=== PATIENT | female | born 1985 | race Caucasian/White ===

== ENCOUNTER → 2020-05-08 16:00 | Outpatient (CLI) | payer OTHER, SELFPAY ==
[2020-05-08 18:15] LABS: Internal QC Validated? YES +Cl - CLEAR BKGD; Pregnancy, Serum, hCG Quali. NEGATIVE Negative
[2020-05-08 18:37] LABS: AST(SGOT) 26 U/L (15-37); Alanine Aminotransfer ALT/SGPT 42 U/L (13-56); Cholesterol 231 mg/dL (200); High Density Lipoprotein 46 mg/dL; Triglycerides 120 mg/dL; Very Low Density Lipoprotein 24 mg/dL (5-40)
== END ==
PROVIDERS: Referring Provider Dermatology; Visit Provider Dermatology
DX: L70.0 Acne vulgaris (principal); L71.8 Other rosacea; Z79.899 Other long term (current) drug therapy
CPT/HCPCS: 36415; 80061; 84450; 84460; 84703

== ENCOUNTER → 2020-06-10 16:34 | Outpatient (CLI) | payer OTHER, SELFPAY ==
[2020-06-10 17:47] LABS: Internal QC Validated? YES +Cl - CLEAR BKGD; Pregnancy, Urine Negative Negative
== END ==
PROVIDERS: Referring Provider Dermatology; Visit Provider Dermatology
DX: Z79.899 Other long term (current) drug therapy (principal)
CPT/HCPCS: 81025

== ENCOUNTER → 2020-07-11 16:01 | Outpatient (CLI) | payer OTHER, SELFPAY ==
[2020-07-11 17:39] LABS: Internal QC Validated? YES +Cl - CLEAR BKGD; Pregnancy, Urine Negative Negative
== END ==
PROVIDERS: Referring Provider Dermatology; Visit Provider Dermatology
DX: Z79.899 Other long term (current) drug therapy (principal)
CPT/HCPCS: 81025

== ENCOUNTER → 2020-08-13 07:17 | Outpatient (CLI) | payer OTHER, SELFPAY ==
[2020-08-13 10:44] LABS: AST(SGOT) 22 U/L (15-37); Alanine Aminotransfer ALT/SGPT 30 U/L (13-56); Albumin, Serum 3.4 g/dL (3.2-5.0); Alkaline Phosphatase 63 U/L (45-117); Bilirubin, Direct < 0.05 mg/dL (0.00-0.30); Protein, Total 7.4 g/dL (6.4-8.2)
[2020-08-13 11:36] LABS: hCG Titer Quant., Serum < 1 mIU/mL (1-3)
== END ==
PROVIDERS: Referring Provider Dermatology; Visit Provider Dermatology
DX: Z79.899 Other long term (current) drug therapy (principal)
CPT/HCPCS: 36415; 80076; 84702

== ENCOUNTER → 2020-09-16 09:18 | Outpatient (CLI) | payer OTHER, SELFPAY ==
[2020-09-16 10:44] LABS: Internal QC Validated? YES +Cl - CLEAR BKGD; Pregnancy, Urine Negative Negative
== END ==
PROVIDERS: Referring Provider Dermatology; Visit Provider Dermatology
DX: Z79.899 Other long term (current) drug therapy (principal)
CPT/HCPCS: 81025

== ENCOUNTER → 2020-10-23 16:25 | Outpatient (CLI) | payer OTHER, SELFPAY ==
[2020-10-23 17:53] LABS: Internal QC Validated? YES +Cl - CLEAR BKGD; Pregnancy, Urine Negative Negative
== END ==
PROVIDERS: Referring Provider Dermatology; Visit Provider Dermatology
DX: Z79.899 Other long term (current) drug therapy (principal)
CPT/HCPCS: 81025

== ENCOUNTER → 2020-11-21 08:53 | Outpatient (CLI) | payer OTHER, SELFPAY ==
[2020-11-21 10:21] LABS: Internal QC Validated? YES +Cl - CLEAR BKGD; Pregnancy, Urine Negative Negative
== END ==
PROVIDERS: Referring Provider Dermatology; Visit Provider Dermatology
DX: Z79.899 Other long term (current) drug therapy (principal)
CPT/HCPCS: 81025

== ENCOUNTER → 2021-01-02 16:44 | Outpatient (CLI) | payer OTHER, SELFPAY ==
[2021-01-02 20:06] LABS: Internal QC Validated? YES +Cl - CLEAR BKGD; Pregnancy, Urine Negative Negative
== END ==
PROVIDERS: Referring Provider Dermatology; Visit Provider Dermatology
DX: Z79.899 Other long term (current) drug therapy (principal)
CPT/HCPCS: 36415; 81025

== ENCOUNTER → 2021-02-06 09:16 | Outpatient (CLI) | payer OTHER, SELFPAY ==
[2021-02-06 10:47] LABS: Internal QC Validated? YES +Cl - CLEAR BKGD; Pregnancy, Urine Negative Negative
== END ==
PROVIDERS: Referring Provider Dermatology; Visit Provider Dermatology
DX: Z79.899 Other long term (current) drug therapy (principal)
CPT/HCPCS: 81025

== ENCOUNTER → 2021-03-13 16:41 | Outpatient (CLI) | payer OTHER, SELFPAY ==
[2021-03-13 19:23] LABS: Internal QC Validated? YES +Cl - CLEAR BKGD; Pregnancy, Urine Negative Negative
== END ==
PROVIDERS: Referring Provider Dermatology; Visit Provider Dermatology
DX: Z79.899 Other long term (current) drug therapy (principal)
CPT/HCPCS: 81025

== ENCOUNTER 2021-04-30 16:26 | Outpatient (CLI) | payer OTHER, SELFPAY ==
[2021-04-30 17:51] LABS: Internal QC Validated? YES +Cl - CLEAR BKGD; Pregnancy, Urine Negative Negative
== END 2021-04-30 23:59 | disposition short-term general hospital (02) ==
LOC: MTLAB 16:27
PROVIDERS: Referring Provider Dermatology; Visit Provider Dermatology
DX: L70.0 Acne vulgaris (principal); L71.8 Other rosacea; L70.5 Acne excoriee; L90.5 Scar conditions and fibrosis of skin; L85.3 Xerosis cutis; K13.0 Diseases of lips; L23.3 Allergic contact dermatitis due to drugs in contact with skin; Z79.899 Other long term (current) drug therapy
CPT/HCPCS: 81025

== ENCOUNTER 2022-01-15 06:02 | Day surgery (SDC) | payer OTHER, SELFPAY ==
[2022-01-09 07:49] LABS: Hematocrit 43.3 % (37-47); Hemoglobin 14.2 g/dL (12.0-15.0); Mean Corp Hgb Conc 32.8 g/dL (32-36); Mean Corpuscular Hgb 29.6 pg (27.0-32.0); Mean Corpuscular Volume 90.2 fL (81-99); Mean Platelet Vol. 9.6 fl (6.2-12.0); Platelet Count 274 K/mm3 (150-450); RBC Distribution Width CV 12.8 % (11.6-14.6); RBC Distribution Width SD 42.3 fl (35.1-43.9)
[2022-01-15 06:20] VITALS: BP 120/95; PULSE 99; RESP 18; TEMP 36.9; O2SAT 98; BMI 38.1
[2022-01-15 06:28] LABS: Internal QC Validated? YES +Cl - CLEAR BKGD; Pregnancy, Urine Negative Negative
[2022-01-15] MEDS: Acetaminophen 500 MG Tablet 1000 MG PO (06:51)
[2022-01-15] MEDS: Lactated Ringers 1,000 ML 15 ML IV (06:51)
[2022-01-15] MEDS: Celecoxib 200 MG Capsule 400 MG PO (06:52)
--- NOTE | 2022-01-15 07:30 | FALS_PTH ---
PATIENT: FLORES SPARKS LOC: [facility] – [place] U#:[id number] AGE/SX: 36/F ROOM: RE01/15/[address]: Dr. Lisa Casey MD : 1985 BED: DIS: 01/15/2022 SPEC #: [id number] RECD: 01/15/22 10:40 STATUS: JENNIFER RECatherine #: [id number] STORMY: 01/15/22 07:[address]: Lisa Casey DEPT: SURGICAL PATHOLOGY RECD BY: Amelia Emerson ENTERED: 01/15/22 11:12 SP TYPE: FALL TUBES OTHR DR: Sriram Vigil Tissues: Fallopian tube Procedures: Surgery Specimen Level II HEADER OPERATION: Laparoscopic salpingectomy PRE-OP DIAGNOSIS: Sterilization request TISSUE SUBMITTED: Bilateral fallopian tubes MICROSCOPIC DIAGNOSIS Right and left fallopian tubes, bilateral salpingectomies: Two complete segments of fallopian tubes with no pathologic change. AM:joe 01/16/2022 MICROSCOPIC DESCRIPTION Slides are reviewed. GROSS DESCRIPTION Received in fixative is one container labeled with the patient's name and designated bilateral fallopian tubes. The specimen consists of bilateral fallopian tubes including fimbrial ends measuring 6.5 cm in length and 0.6 cm in diameter and 6 cm in length and 0.4 cm in diameter. The fallopian tubes are not identified as right or left. Sections reveal unremarkable cut surfaces. Traveling Buyer sections are submitted in two cassettes with each cassette containing one fallopian tube. / PAULINO:joe 01/15/2022 TC:4 CPT: 54953 x2
--- NOTE | 2022-01-15 07:46 | PCM.HP.BLA ---
History and Physical Date of Admission: 01/15/22 STERILIZATION REQUEST. H&P reviewed, no clinically relevant updates since entered.
--- NOTE | 2022-01-15 07:51 | DCINST_ITS ---
Discharge Instructions Diet Discharge Diet: No restrictions Activity Return to work on:: 01/19/22August shower in (days): 1 May resume sexual activity in: 2 weeks Lifting Restrictions: 15 lbs for 3 days Dressing / Incision Call your doctor if your incision/area has: Continuous Slow Oozing, Sudden Increased Bleeding and Increased Pain/ Swelling Call your doctor if you observe: Fever of 101 or Higher and Inability to urinate Cleanse incision/area with: Soap & Water Additional Dressing/Incision Instructions:: YOur incisions have skin glue. Leave them it on for 10 days or until it falls off. Alternate tylenol or acetaminophen 700-1000 mg orally every 6-8 hrs as needed for pain Follow Up Care Please Follow Up With: Lisa Casey MD When: as needed Test Results: Test results from this visit will be discussed in further detail at your follow- up appointment, if applicable. Discharge Plan Admission Primary Reason for Your Visit: Tubal sterilization Attending Provider: Lisa Casey Primary Care Provider: Sriram Vigil Discharge Orders/Prescriptions Prescriptions: New ibuprofen [ibuprofen] 600 MG tablet 600 mg PO Q6H PRN PRN (Reason: fever or pain) 20 Days Qty: 60 1RF No Action calcium 600 mg Capsule 600 mg PO DAILY Mirena 20 mcg/24 hours (7 yrs) 52 mg Intrauterine Device 52 mcg INTRAUTERINE . ascorbic acid (vitamin C) [Vitamin C] 500 mg Tablet 1,000 mg PO DAILY valerian root 1,000 mg Capsule 1,000 mg PO QHS methylphenidate HCl 27 mg Tablet Extended Release 24hr 27 mg PO DAILY Women's One Daily 27-0.4 mg Tablet 1 tab PO DAILY Referrals / Follow Up: Sriram Vigil [Primary Care Provider] - Disposition Disposition (needs filled in before D/C Order can be placed): Home, Self Care
--- NOTE | 2022-01-15 08:11 | PCM.OPRPT ---
Problems Associated Problem List Diagnoses (1) Sterilization: Report of Operation Date of Procedure: 01/15/22 Pre-Operative Diagnosis: sterilization request Post-Operative Diagnosis: same Surgery/Procedure Performed:: Laparoscopic bilateral salpingectomy Description of Surgical Findings:: Normal cervix, vagina, uterus tubes and ovaries. Surgeon: Lisa Casey supervisor agricultural education: None Type of Anesthesia: General Anesthesiologist: Phil Duggan Special Medications: none Specimen's removed: Bilateral fallopian tube Drains: None Estimated Blood Loss (mL): 10 Fluids Replaced: 600 Description of Procedure: The patient was taken to the operating room where she was prepped and draped in the dorsolithotomy position. A weighted speculum was placed in the vagina and the anterior lip of the cervix was grasped with a tenaculum. No other uterine manipulator was made because the patient has an IUD and the Mirena strings were visualized. The remaining instruments removed from the vagina and attention was turned to the abdomen. All port sites were infiltrated with 0.25% Marcaine before skin incisions were made. A 5 mm intraumbilical incision was made. The anterior abdominal wall was tented up with 2 towel clamps while a 5 mm blade less trocar and sleeve were directly inserted. Intraperitoneal placement was confirmed with the laparoscope. The pneumoperitoneum was created and the underlying abdominal contents were intact. The patient was placed in Trendelenburg. Right and left lower quadrant ports were placed under direct visualization lateral to the inferior epigastric vessels. The bowel was swept away and the above findings were noted. The Enseal device was used to clamp seal and transect the antimesenteric portions of the right tube to the cornual insertion of the uterus. The tube was amputated from the uterus and the pedicles were all confirmed to be hemostatic. The same procedure was performed on the contralateral side. The specimens were brought out through a 5 mm port. The pedicles were again examined and found to be hemostatic. The lateral ports were removed under direct visualization and no active bleeding was noted. The pneumoperitoneum was released. The skin incisions were closed with Monocryl suture in a subcuticular fashion and skin glue. The vaginal instruments were removed and the vaginal sweep was completed by me. The procedure was performed by me with assistance. All sponge and needle counts were correct and the patient was taken to the recovery room in stable condition. Grafts/Implants Used: none Procedure Start Time: 11:59 Procedure Stop Time: 08:09 Complications none Admit VTE Documentation VTE Present on Admission: No VTE Mechan Device Prophylaxis: SCD's VTE Pharm Prophylaxis ordered?: No
[2022-01-15 08:27] VITALS: BP 112/76; BP 120/95; PULSE 103; RESP 16; TEMP 36.4; O2SAT 92
[2022-01-15 08:30] VITALS: BP 100/85; BP 120/95; PULSE 97; RESP 16; O2SAT 92
[2022-01-15 08:45] VITALS: BP 112/77; BP 120/95; PULSE 92; RESP 16; O2SAT 92
[2022-01-15 08:51] VITALS: BP 106/76; BP 120/95; PULSE 82; RESP 16; TEMP 36.5; O2SAT 99
[2022-01-15 09:48] VITALS: BP 119/81; BP 120/95; PULSE 81; RESP 16; TEMP 36.9; O2SAT 99
== END 2022-01-15 10:07 | disposition home or self-care (01) ==
LOC: SDC 06:03 → AC 06:03
PROVIDERS: Referring Provider Obstetrics & Gynecology; Visit Provider Obstetrics & Gynecology
PROC: (CPT 58661; principal; 2022-01-15 07:15)
DX: Z30.2 Encounter for sterilization (principal); H54.42A3 Blindness left eye category 3, normal vision right eye
CPT/HCPCS: 58661; 00840; 36415; 81025; 85027; 88302; J7120; C1760; J2405